=== PATIENT | male | born 1955 | race Caucasian/White ===

== ENCOUNTER 2016-11-01 16:24 | Observation (INO) | payer MEDICARE, BC ==
[~2016-11-01] VITALS: Ht 175.3 cm; Wt 100.7 kg
--- NOTE | ~2016-11-01 | HEMODYNAMI ---
PATIENT:JOCELYN BACON MEDICAL RECORD: [id number] : 59 [id number] ADMISSION DATE: 11/01/16 Generatedon:11/02/201615:32 Patient name: JOCELYN BACON Patient #: [id number] : 1955 Date of study: 11/02/2016 Page: Of Hemodynamic Procedure Report Patient Data Patient Demographics Procedure consent was obtained First Name: OJCELYN Gender: Male Last Name: JORDI : 1955 [facility] Initial: ANGELA Age: 61 year(s) Patient #: [id number] Race: SSN: [id number] Additional ID: [id number] Contact details Address: [address] [place] [address] State: [place] City: [place] Zip code: [address] Admission Admission Data Admission Date: 11/01/2016 Admission Time: 16:24 Arrival Date: 11/01/2016 Arrival Time: 16:24 Admit Source: Other Insurance Payor: Medicare Room #: D.2117 Weight (lbs.): 222.67 Weight (kg.): 101 Lab Results Lab Result Date: 11/02/2016 Lab Result Time: 0:00 Biochemistry Name Units Result Min Max BUN mg/dl 10 --(-*--)-- 7 18 Creatinine mg/dl 0.9 --(-*--)-- 0.6 1.3 CBC Name Units Result Min Max Hemoglobin g/dl 16.2 --(--*-)-- 13.5 17.5 Procedure Procedure Types Cath Procedure Diagnostic Procedure LHC LHC w/Coronaries w/Grafts PCI Procedure SVG-BMS/GABRIELLA Initial Procedure Description Procedure Date Procedure Date: 11/02/2016 Procedure Start Time: 14:45 Procedure End Time: 15:26 Procedure Staff Name Function Ismael Badillo MD Performing Physician Rosemarie Hyde RT Scrub Alicia Michaels RN Nurse Liberty Barger RT Monitor Jamar Thakur RT Shop Supervisor Indication Angina Procedure Data Cath Procedure Fluoroscopy Diagnostic fluoroscopy Total fluoroscopy Time: time: 13.8 min 13.8 min Diagnostic fluoroscopy Total fluoroscopy dose: dose: 1181.31 mGy 1181.31 mGy Contrast Material Contrast Material Type Amount (ml) Isovue 370 196 Entry Location Entry Primary Successful Side Size Upsize Upsize Entry Closure Succes sful Closure Location (Fr) 1 (Fr) 2 (Fr) Remarks Device Remarks Femoral Right 5 Fr 6 Fr Exoseal artery Short Estimated blood loss: 5 ml Diagnostic catheters Device Type Used For End Catheter Placement Cordis Infinity 5Fr JL 5 Left Coronary catheter Angiography Cordis Infinity 5Fr LCB Multi-vessel catheter Angiography Cordis Infinity 5Fr AR Multi-vessel MOD Catheter Angiography Procedure Complications No complications Procedure Medications Medication Administration Route Dosage Oxygen NC 2 l/min Heparin Flush Bag added to field 2 bags (1000units/500ml NS) Lidocaine 2% added to field 20 Versed I.V. 1 mg Fentanyl I.V. 50 mcg Versed I.V. 1 mg Fentanyl I.V. 50 mcg Versed I.V. 1 mg Fentanyl I.V. 50 mcg Heparin Bolus I.V. 5000 units Versed I.V. 1 mg Cardene I.C. 300 mcg Plavix P.O. 75 mg Hemodynamics Rest HGB: 16.2 (g/dl) Heart Rate: 70 (bpm) Pressure Samples Time Site Value (mmHg) Purpose Heart Use Rate(bpm) 15:00 AO 118/15(47) Snapshot 63 15:00 LV 122/11,18 Snapshot 64 15:01 AO 123/77(100) Pullback 67 15:01 LV 120/10,16 Pullback 67 Gradients Valve Time Site 1 Site 2 Mean SEP/DFP Peak To Heart Use (mmHg) (sec/min) Peak Rate (mmHg) (bpm) Aortic 15:01 LV AO 0 6 0 67 120/10,16 123/77(100) Calculations Valve P-P Mean Valve Index Valve Source Name Gradient Area Flow (cm2) Aortic 0 0 0 0 Snapshots Pre Cath Intra NCS Post Cath Vital Signs Time Heart Resp SPO2 NIBP (mmHg) Rhythm Pain Sedation Rate (ipm) (%) Status Level (bpm) 14:31:32 71 16 97 Measuring NSR 0 (11) 10(A) , No pain 14:32:07 67 16 96 144/96(125) NSR 0 (11) 10(A) , No pain 14:36:21 68 16 96 135/86(105) NSR 0 (11) 10(A) , No pain 14:40:29 69 16 96 113/89(107) NSR 0 (11) 10(A) , No pain 14:45:18 65 17 95 134/102(127) NSR 0 (11) 9(A) , No pain 14:49:32 61 16 96 116/88(106) NSR 0 (11) 9(A) , No pain 14:53:41 61 16 96 134/81(104) NSR 0 (11) 9(A) , No pain 14:57:51 63 17 96 120/82(109) NSR 0 (11) 9(A) , No pain 15:02:22 63 16 98 77/52(57) NSR 0 (11) 9(A) , No pain 15:05:59 64 16 95 117/74(92) NSR 0 (11) 9(A) , No pain 15:10:11 62 16 97 125/75(99) NSR 0 (11) 9(A) , No pain 15:14:27 63 17 98 122/78(105) NSR 0 (11) 9(A) , No pain 15:18:41 66 16 97 141/78(114) NSR 0 (11) 9(A) , No pain 15:23:40 61 16 97 Measuring NSR 0 (11) 9(A) , No pain 15:24:11 60 18 98 127/80(112) NSR 0 (11) 10(A) , No pain 15:26:54 63 18 98 130/86(109) NSR 0 (11) 10(A) , No pain Medications Time Medication Route Dose Verified Delivered Reason Notes Effectiveness by by 14:34:47 Oxygen NC 2 Ismael Alicia Per physician l/min St. Jamie Michaels RN, MD 14:34:53 Heparin Flush added 2 Ismael Ismael used for Bag to bags [facility] procedure (1000units/500ml field MD MARTINEZ NS) 14:34:59 Lidocaine 2% added 20ml Ismael Guevara used [facility] MARTINEZ 14:36:02 Versed I.V. 1 mg Ismael Alicia for sedation [facility]. Jamie Michaels RN, MD 14:36:08 Fentanyl I.V. 50 Isamel Alicia for sedation mcg [facility] Jamie Michaels RN, MD 14:38:16 Versed I.V. 1 mg Ismael Alicia for sedation [facility]. Jamie Michaels RN, MD 14:38:24 Fentanyl I.V. 50 Ismael Alicia for sedation mcg [facility] Jamie Michaels RN, MD 14:41:11 Versed I.V. 1 mg Ismael Alicia for sedation St. Jamie Michaels RN, MD 14:41:24 Fentanyl I.V. 50 Ismael Alicia for sedation mcg [facility] Jamie Michaels RN, MD 15:02:36 Heparin Bolus I.V. 5000 Ismael Alicia for dose units St. Jamie Michaels RN anticoagulation verified MD with dr brumfield 15:03:02 Versed I.V. 1 mg Ismael Alicia for sedation St. Jamie Michaels RN, MD 15:13:56 Cardene I.C. 300 Ismael Ismael for mcg CuberoJamie Patel MD, MD 15:26:18 Plavix P.O. 75 mg Ismael Alicia for St. Jamie Michaels RN antiplatelet MD therapy Procedure Log Time Note 14:00:34 Jamar Thakur RT(R) sent for patient. Start room use. 14:22:41 Informed consent obtained and on chart 14:23:00 Arrival Date: 11/01/2016 4:24:00 PM 14:23:16 Admit Source: Other 14:23:19 Insurance Payor : Medicare 14:25:26 Lab Result : Hemoglobin 16.2 g/dl 14:25:26 Lab Result : Creatinine 0.9 mg/dl 14:25:26 Lab Result : BUN 10 mg/dl 14:25:32 Diagnostic Cath Status : Elective 14:25:51 Indication : Angina 14:26:40 Time tracking: Regular hours 14:26:45 Plan of Care:Hemodynamics will remain stable., Cardiac rhythm will remain stable., Comfort level will be maintained., Respiratory function will remain adequate., Patient/ family verbilizes understanding of procedure., Procedure tolerated without complication., Recovers from procedure without complications.. 14:26:58 Patient received from [facility] to [facility] 2 Alert and oriented. Tansferred to table in Supine position. 14:26:59 Warm blankets applied, and marion hugger turned on for patient comfort. 14:27:00 Correct patient and procedure confirmed by team. 14:27:01 ECG and BP/O2 sat monitors applied to patient. 14:29:43 Vital chart was started 14:29:48 Rhythm: sinus rhythm 14:29:50 Full Disclosure recording started 14:30:10 H&P Date Dictated: 11/02/2016 Emergent; H&P N/A. 14:30:21 Pre-procedure instructions explained to patient. 14:30:22 Pre-op teaching completed and patient verbalized understanding. 14:30:24 Family in waiting room. 14:30:26 Patient NPO since Midnight. 14:30:29 Is the patient allergic to Iodine/contrast media? No. 14:31:05 Is patient on blood thinner?No 14:31:08 ACC The patient was administered the following blood thiners within the last 24 hours: None 14:31:12 Patient diabetic? No. 14:31:14 Previous problem with sedation/anesthesia? No ? 14:31:15 Snore? Yes 14:31:16 Sleep apnea? Yes 14:31:17 Deviated septum? No 14:31:18 Opens mouth fully? Yes 14:31:19 Sticks out tongue? Yes 14:31:21 Airway obstruction? No ? 14:31:25 Dentures? Yes IN 14:31:32 Pre procedure: right dorsailis pedis pulse 1+ Palpable, but thready & weak; easily obliterated 14:31:34 Patient pain scale 0/10 ?. 14:31:39 IV patent on arrival in right forearm with 0.9% NaCl at [facility]. 14:31:42 Lab results completed and on chart. 14:31:46 Right groin area was prepped with chlora-prep and draped in sterile fashion 14:31:47 Alarms reviewed by R. N. 14:31:47 Sharps counted by scrub and verified by R.N. 14:32:30 Use device set Femoral Dx 14:32:34 Tegaderm 4 x 4 opened to sterile field. 14:32:35 Acist Manifold opened to sterile field. 14:32:36 Acist Hand Control opened to sterile field. 14:32:38 Acist Syringe opened to sterile field. 14:32:38 Bag Decanter opened to sterile field. 14:32:39 Cardinal Cath Pack opened to sterile field. 14:32:39 Terumo 5Fr [place] Sheath opened to sterile field. 14:32:40 St Clark 260cm J .035 wire opened to sterile field. 14:32:41 Cordis Infinity 5Fr Multipack catheter opened to sterile field. 14:32:54 --------ALL STOP TIME OUT------ 14:32:54 Final Timeout: patient, procedure, and site verified with staff and physician. All members of the team are in agreement. 14:32:57 Right groin site verified by team. 14:33:00 Physical assessment completed. ASA score P 2 - A patient with mild systemic disease as per Ismael Badillo MD. 14:33:04 Sedation plan: IV Moderate Sedation Versed, Fentanyl 14:34:47 Oxygen 2 l/min NC was given by Alicia Michaels RN; Per physician; 14:34:53 Heparin Flush Bag (1000units/500ml NS) 2 bags added to field was given by Ismael Badillo MD; used for procedure; 14:34:59 Lidocaine 2% 20ml vial added to field was given by Ismael Badillo MD; used for procedure; 14:36:02 Versed 1 mg I.V. was given by Alicia Michaels RN; for sedation; 14:36:08 Fentanyl 50 mcg I.V. was given by Alicia Michaels RN; for sedation; 14:38:05 Baseline sample Acquired. 14:38:16 Versed 1 mg I.V. was given by Alicia Michaels RN; for sedation; 14:38:24 Fentanyl 50 mcg I.V. was given by Alicia Michaels RN; for sedation; 14:41:11 Versed 1 mg I.V. was given by Alicia Michaels RN; for sedation; 14:41:24 Fentanyl 50 mcg I.V. was given by Alicia Michaels RN; for sedation; 14:45:46 Zero performed for pressure channel P1 14:45:51 Procedure started. 14:45:56 Local anesthetic to right femoral artery with Lidocaine 2% by Ismael Badillo MD.INITIAL ACCESS ONLY 14:46:05 A 5 Fr sheath was inserted into the Right Femoral artery 14:46:39 5 Fr jl4 guide catheter was inserted over the wire 14:48:38 Catheter removed. 14:49:09 A Cordis Infinity 5Fr JL 5 catheter was advanced over the wire and used for Left Coronary Angiography. 14:49:41 LCA angiography performed. 14:49:48 Injector settings: Ml/sec: 3, Volume: 6, 14:50:39 Catheter removed. 14:50:47 5 Fr 3drc guide catheter was inserted over the wire 14:51:11 RCA angiography performed. 14:51:15 Injector settings: Ml/sec: 3, Volume: 6, 14:51:31 SVG to RCA angiography performed. 14:52:03 Catheter removed. 14:52:47 A Cordis Infinity 5Fr LCB catheter was advanced over the wire and used for Multi-vessel Angiography. 14:53:40 SVG angiography performed. 14:56:23 Catheter removed. 14:56:27 A Cordis Infinity 5Fr AR MOD Catheter was advanced over the wire and used for Multi-vessel Angiography. 14:58:59 SVG angiography performed. 14:59:12 Catheter removed. 14:59:51 Terumo 6Fr [place] Sheath opened to sterile field. 14:59:52 Firetide BasixCompak Inflation Kit opened to sterile field. 14:59:54 Cr Whisper J 300cm 0.014 guide wire opened to sterile field. 15:01:00 5 Fr pig guide catheter was inserted over the wire 15:01:13 LV hemodynamics recorded. 15:01:15 LV gram done using DOYLE 15:01:17 Injector settings: Ml/sec: 5, Volume: 15, 15:01:26 EF : 55 % 15:01:43 Catheter removed. 15:02:00 Isonastronic Launcher 6Fr JR 4.0 guide catheter opened to sterile field. 15:02:09 Sheath upsized to a 6 Fr Short. 15:02:15 6 Fr jr 4 guide catheter was inserted over the wire 15:02:28 whisper wire advanced. 15:02:36 Heparin Bolus 5000 units I.V. was given by Alicia Michaels RN; for anticoagulation; dose verified with dr brumfield 15:03:02 Versed 1 mg I.V. was given by Alicia Michaels RN; for sedation; 15:05:11 Wire advanced across lesion. 15:07:05 Inflation number: 1 A Colcord Sci [place] 3.0 X 15 balloon was prepped and advanced across the Aorta Left -> Mid LAD, then inflated to 6 DELANO for 0:30 (min:sec). 15:07:18 Inflation number: 2 The Colcord Sci [place] 3.0 X 15 balloon was reinflated across the Aorta Left -> Mid LAD, to 6 DELANO for 0:30 (min:sec). 15:07:44 Inflation number: 3 The Colcord Sci [place] 3.0 X 15 balloon was reinflated across the Aorta Left -> Mid LAD, to 8 DELANO for 0:10 (min:sec). 15:09:14 Inflation number: 4 The Colcord Sci [place] 3.0 X 15 balloon was reinflated across the Aorta Left -> Mid LAD, to 10 DELANO for 0:30 (min:sec). 15:10:23 Inflation number: 5 The Colcord Sci [place] 3.0 X 15 balloon was reinflated across the Aorta Left -> Mid LAD, to 8 DELANO for 0:10 (min:sec). 15:13:56 Cardene 300 mcg I.C. was given by Ismael Badillo MD; for vasodilation; 15:16:10 Balloon removed over the wire. 15:19:31 Inflation Number: 6 A Medtronic Integrity 3.0 X 18 stent was prepped and advanced across the Aorta Left -> Mid LAD. The stent was deployed at 14 DELANO for 0:30 (min:sec). 15:19:57 Stent catheter was removed intact over wire. 15:23:19 Inflation Number: 7 A Medtronic Integrity 3.5 X 15 stent was prepped and advanced across the Aorta Left -> Mid LAD. The stent was deployed at 12 DELANO for 0:30 (min:sec). 15:24:22 Stent catheter was removed intact over wire. 15:24:23 Wire removed. 15:24:23 Guide catheter removed. 15:24:49 Cordis 6Fr Exoseal opened to sterile field. 15:25:06 Sheath removed intact; hemostasis achieved with Exoseal to the Right Femoral artery. 15:25:08 Procedure ended.(Physican Out) 15:25:17 Fluoroscopy time 13.80 minutes. 15:25:31 Fluoroscopy dose: 1181.31 mGy 15:25:31 Flurop Dose total: 1181.31 15:25:35 Contrast amount:Isovue 370 196ml. 15:25:37 Sharps counted by scrub and verified by R.N. 15:25:39 Insertion/operative site no bleeding no hematoma. 15:25:42 Post-op/insertion site Right Femoral artery dressed using a 4 x 4 and Tegaderm. 15:25:44 Post right femoral artery:stable 15:25:46 Post Procedure Pulses reassessed and unchanged 15:25:49 Post procedure rhythm: unchanged. 15:25:52 Estimated blood loss: 5 ml 15:25:53 Post procedure instruction explained to patient.Patient verbalizes understanding. 15:25:54 Patient needs reinforcement of post procedure teaching. 15:26:08 Procedure type changed to Cath procedure, Diagnostic procedure, LHC, LHC w/Coronaries w/Grafts, PCI procedure, SVG-BMS/GABRIELLA Initial 15:26:09 Procedure and supply charges have been captured, reviewed, submitted and are correct. 15:26:13 Procedure Complication : No complications 15:26:17 Vital chart was stopped 15:26:17 See physician's report for complete and final results. 15:26:18 Plavix 75 mg P.O. was given by Alicia Michaels RN; for antiplatelet therapy; 15::24 Report given to [facility]. 15:26:26 Patient transfered to [facility] with Stretcher. 15:26:32 Procedure ended. 15:26:32 Full Disclosure recording stopped 15::44 ACC-PCI Only Patient was given prescriptions, or instructed by Ismael Badillo MD to start/continue the following medications upon discharge: Plavix 15::45 End room use (Document Last) 15:30:41 Patient Weight : 101 kg Intervention Summary Intervention Notes Time ActionType Lesion and Equipment Action# Pressure Duration Attributes Used 15:07:05 Inflate Aorta Left Colcord 1 6 00:30 balloon -> Mid LAD Sci [place] 3.0 X 15 balloon 15:07:18 Reinflate Aorta Left Colcord 2 6 00:30 balloon -> Mid LAD Sci [place] 3.0 X 15 balloon 15:07:44 Reinflate Aorta Left Colcord 3 8 00:10 balloon -> Mid LAD Sci [place] 3.0 X 15 balloon 15:09:14 Reinflate Aorta Left Colcord 4 10 00:30 balloon -> Mid LAD Sci [place] 3.0 X 15 balloon 15:10:23 Reinflate Aorta Left Colcord 5 8 00:10 balloon -> Mid LAD Sci [place] 3.0 X 15 balloon 15:19:31 Place stent Aorta Left Medtronic 6 14 00:30 -> Mid LAD Integrity 3.0 X 18 stent 15:23:19 Place stent Aorta Left Medtronic 7 12 00:30 -> Mid LAD Integrity 3.5 X 15 stent Device Usage Item Name Manufacture Quantity Catalog Number Hospital Part Current Mini mal Lot# / Charge Number Stock Stock Serial# Code Tegaderm 4 3M 1 [id number] [id number] 427372 5 x 4 Acist Acist 1 01806 190159 418521 579083 5 Stepcase [employer] Acist Hand Acist 1 51913 904793 257415 531516 5 Metabolomic [employer]ostics Systems [employer] Acist Acist 1 34727 875865 072046 206669 20 Syringe Medical Systems [employer] Bag Microtek 1 [facility] 925256 56074 162398 5 [employer] Cardinal Cardinal 1 [id number] 374664 75022 075305 5 Cath Pack Health Terumo 5Fr Terumo 1 [id number] 488361 169638 224771 [address] [address] [facility] 1 087404 014861 862287 083185 30 260cm J .035 wire Cordis Cardinal 1 [id number] 229467 65986 187204 30 [facility] 5Fr Multipack catheter Cordis Cardinal 1 [id number] 707185 927911 806413 5 [facility] 5Fr JL 5 catheter Cordis Cardinal 1 [id number] 499463 443769 791008 5 [facility]inity Health 5Fr LCB catheter Cordis Cardinal 1 [id number] 822885 707578 736234 15 [facility] Health 5Fr AR MOD Catheter Terumo 6Fr Terumo 1 [id number] 219883 004288 854884 40 [place] Sheath Merit Merit 1 [id number] 473831 516253 610005 15 BasLucky Pai Medical Inflation Kit Cr Cr 1 [id number] 640457 506588 685767 5 Whisper J Vascular 300cm 0.014 guide wire Medtronic Medtronic 1 [id number] 012269 18093 983464 1 Launcher 6Fr JR 4.0 guide catheter Colcord Sci Colcord 1 [id number] 023341 780119 393567 1 [id number] [place] Scientific 3.0 X 15 balloon Medtronic Medtronic 1 [id number] 396458 098374 253737 7 [id number] Integrity 3.0 X 18 stent Medtronic Medtronic 1 [id number] 621613 303770 642324 3 [id number] Integrity 3.5 X 15 stent Cordis 6Fr Cardinal 1 [id number] 238238 113408 979583 10 [facility] [employer] Signature Audit [place] Stage Time Signature Unsigned Intra-Procedure 11/02/2016 Liberty Barger 3:32:05 PM RT(R) Signatures Monitor : Liberty Barger RT Signature : Date : Time : [id number] [place] [address]
[2016-11-01 16:38] VITALS: BP 142/113; BMI 32.8
--- NOTE | 2016-11-01 16:43 | NUR ---
TRANSFERED BY EMS FROM [facility]. OREINTED TO ROOM. CALL LIGHT IN REACH. WILL CONT. PLAN OF CARE.
[2016-11-01] MEDS ORDERED: BYSTOLIC2.5 MG PO (16:56)
[2016-11-01] MEDS ORDERED: HYDROCODON-ACE1 EAC7 PO (16:56)
[2016-11-01] MEDS ORDERED: DYAZIDE 37.5/251 CAP PO (16:57)
[2016-11-01] MEDS ORDERED: BAYER CHEWABLE81 MG PO (16:57)
[2016-11-01] MEDS ORDERED: RESTORIL15 MG PO (16:58)
[2016-11-01] MEDS ORDERED: ZOCOR80 MG PO (16:58)
[2016-11-01] MEDS ORDERED: FISH OIL 1,0001 CA1 PO (16:59)
[2016-11-01 19:16] LABS: BASOPHILS 0.2 % (0.0-2.0); EOSINOPHILS 0.7 % (0-7); HEMATOCRIT 45.2 % (42.0-54.0); HEMOGLOBIN 16.2 g/dL (13.5-17.5); IMMATURE GRANULOCYTES 0.3 % (0-5); LYMPHOCYTES 26.1 % (15-50); MCH 31.5 pg (26.0-34.0); MCHC 35.8 g/dL (31.0-37.0); MCV 87.8 fL (80.0-100.0); MEAN PLATELET VOLUME 9.8 fL (7.4-10.4); MONOCYTES 6.7 % (2-11); PLATELET COUNT 138 10x3/uL (130-400); RBC 5.15 10x6/uL (4.20-6.10); RDW 13.6 % (11.5-14.5); WBC 10.2 10x3/uL (4.8-10.8)
[2016-11-01 19:49] LABS: CALC OSMOLALITY 277 mosm/kg (275-300); CALCIUM 9.2 mg/dL (8.5-10.1); CARBON DIOXIDE 27.4 mmol/L (21.0-32.0); CHLORIDE - SERUM 101 mmol/L (98-107); CREATININE - SERUM 0.9 mg/dL (0.6-1.3); GLUCOSE 122 mg/dL (74-106); POTASSIUM - SERUM 4.1 mmol/L (3.5-5.1); SODIUM 139 mmol/L (136-145); UREA NITROGEN 10 mg/dL (7-18); eGFR NON AFRICAN AMERICAN > 90 mL/min (90-120)
[2016-11-01 20:33] VITALS: BP 108/61
[2016-11-02 00:32] VITALS: BP 136/69
[2016-11-02 04:42] VITALS: BP 115/68
--- NOTE | 2016-11-02 06:12 | NUR ---
PT ASSESSMENT COMPLETED NO DISTRESS OBSERVED AT THIS TIME CALL LIGHT IN REACH SRX2 BED LOW AND LOCKED WILL MONITOR
[2016-11-02 08:00] VITALS: BP 99/56
--- NOTE | 2016-11-02 10:23 | NUR ---
TELEMETRY SB. RESP UL ON 02 2L DE. NPO FOR [facility]. AT BS. WILL CONT. PLAN OF CARE.
[2016-11-02 12:00] VITALS: BP 106/62
[2016-11-02 12:20] VITALS: Ht 175.3 cm; Wt 100.7 kg
--- NOTE | 2016-11-02 14:11 | NUR ---
PRE-OPS GIVEN. UNDERSTANDING VOICED. ESCORTED TO CAR BY W/C.
--- NOTE | 2016-11-02 14:13 | NUR ---
PRE-OPS GIVEN. TO CLINICAL SUPPORT TECH BY BED.
--- NOTE | 2016-11-02 15:45 | NUR ---
BACK FROM MOTHERCRAFT NURSE. VS WNL. RIGHT GROIN STABLE WITHOUT BLEEDING OR HEMATOMA NOTED. WILL MONITOR.
[2016-11-02 16:00] VITALS: BP 118/67
[2016-11-02] MEDS ORDERED: PLAVIX75 MG PO (16:24)
[2016-11-02] MEDS ORDERED: COZAAR25 MG PO (16:24)
--- NOTE | 2016-11-02 20:01 | NUR ---
DC'D IV WITH TIP INTACT, RIGHT GROIN DRESSING C/D/I. PEDAL PULSE PALPABLE. DISCHARGE PAPER WORK SIGNED AND POST OP INSTRUCTIONS GIVEN.
--- NOTE | 2016-11-03 14:44 | OP ---
PATIENT NAME: JOCELYN BACON MEDICAL RECORD: [id number] :59 LOCATION:D. D.2117 ADMISSION DATE:11/01/16 SURGEON: BORIS MANCERA MD DATE OF OPERATION: PROCEDURE: Left heart catheterization, selective coronary angiography, right femoral approach. CATHETERS: A 5-St Lucian sheath, 5/4 left and right Ramu, 5/4 pig. The procedure was tolerated. We proceeded to PTCA stenting of the saphenous vein graft to the circumflex after procedure was finished. FINDINGS: Left ventriculography in the 30-degree DOYLE view shows marked inferior hypokinesis. Overall, LV function reduced to 30% to 35%. CORONARY ANATOMY: LEFT MAIN: Left main fills for a short period of time and basically also seen filling the distal circumflex via left-left collaterals. LAD: Totally occluded. CIRCUMFLEX: Totally occluded. RIGHT CORONARY ARTERY: Totally occluded proximally. BYPASS GRAFTS: 1. Saphenous vein graft to the LAD is widely patent throughout its course. 2. Saphenous vein graft to the OM has what looks like spontaneous dissection at the area of previous stenting as well as thrombus versus dissection in the mid portion of this vessel, this vessel is a small runoff vessel. Right coronary has some degenerative change, but no flow obstructive disease. Saphenous vein graft to right has degenerative changes, but no flow obstructive disease. PLAN: Intervention of saphenous vein graft to the circumflex. DESCRIPTION: A 5-St Lucian sheath was exchanged for a 6-St Lucian sheath. A JR guiding catheter provided good catheter support followed by a 300 cm [place] XT wire placed across the tightly occluded 90% saphenous vein graft to the circumflex. We initially did balloon dilatation in the area of questionable thrombus; however, this showed no improvement despite the patient appeared to be on Plavix. Additionally, he was given 1.2 cc of IC Cardene. Stents were placed in the following fashion. A 3.0 x 18 mm Integrity nondrug-eluting stent was inflated up to 14 atmospheres in the midportion. This shows an excellent tacking of probable dissection in the mid portion of the saphenous vein graft. Next, proximally in the area of previous stenting with obvious dissection, 3.5 mm Integrity nondrug eluting stent was placed up to 14 atmospheres. Final injection shows excellent resolution of two separate dissections. This is a small runoff vessel. TAD flow was 3 at the end of the procedure. Heparin was used in the case. Sheath was closed with ExoSeal device. TRANSINT:[id number] Voice Confirmation ID: [id number] DOCUMENT ID: [id number] OPERATIVE REPORT [id number] JOCELYN BACON,BORIS Kraft MD at 1444 CC: [id number] DICTATION DATE: 11/02/16 1535 SALESPERSON HANDBAGS: 11/02/16 2248 DIS IN 11/02/[address] [address]
--- NOTE | 2016-11-03 14:44 | CN ---
PATIENT NAME:JOCELYN BACON MEDICAL RECORD: [id number] : 59 LOCATION:D. D.2117 ADMIT DATE: 11/01/16 ACCOUNT: [id number] CONSULTING PHYSICIAN: BORIS MANCERA MD REFERRING PHYSICIAN: BORIS MANCERA MD DATE OF CONSULTATION: 11/02/2016 Cardiology Consultation HISTORY OF PRESENT ILLNESS: This is a pleasant 61-year-old gentleman with known history of coronary artery disease, status post coronary bypass grafting subsequent interventions. He has been doing actually extremely well, until yesterday was actually full court basketball with his grandson and had angina, took 3 nitroglycerin, received partial relief, although not complete, and was transferred here for further evaluation. Received Lovenox, Plavix, and aspirin and had complete relief. Enzymes negative. We are asked to see him concerning his cardiovascular status. He was transferred for further evaluation. PAST MEDICAL HISTORY: 1. History of hypertension. 2. Hyperlipidemia. 3. Osteoarthritis. 4. Insomnia. ALLERGIES: LORAZEPAM. MEDICATIONS: Include: 1. Dyazide 1 p.o. daily. 2. Restoril 15 at bedtime p.r.n. 3. Aspirin 81 daily. 4. Simvastatin 80 daily 5. Bystolic 2.5 daily. SOCIAL HISTORY: , lives near [place]. He takes care of his ADLs. Nonsmoker. REVIEW OF SYSTEMS: The patient reports easy bruising but reports no swollen glands. The patient reports no fever, no night sweats, no significant weight gain, no significant weight loss. No significant exercise tolerance. The patient reports no dry eyes, no irritation, no vision change. Patient reports no difficulty hearing and no ear pain. Patient reports no frequent nose bleeds or nose and sinus problems. Patient reports on arm pain on exertion. No shortness of breath while lying down. No history of heart murmur. Patient reports no cough, no wheezing or coughing up blood. Patient reports no abdominal pain, no vomiting. Normal appetite. No diarrhea and not vomiting blood. No nausea and no constipation. Patient reports no incontinence. No difficulty urinating. No hematuria. No increased frequency. Patient reports no muscle aches. No weakness, no arthralgias, no back pain. No swelling of the extremities. Patient reports no abnormal mole, no jaundice, no rashes. Reports no loss of consciousness. No weakness and no numbness. No seizures, dizziness, or headaches. The patient reports no depression, no sleep disturbance, feeling safe in a relationship and no alcohol abuse. Patient reports on fatigue. Reports no runny nose or sinus pressure. No itching, no hives, and no frequent sneezing. CONSULT REPORT [id number] JOCELYN BACON PHYSICAL EXAMINATION: GENERAL: Pleasant gentleman in no acute distress. VITAL SIGNS: 115/68, pulse is 57 and regular. HEENT: Normocephalic and atraumatic. NECK: No JVD or bruit. HEART: Regular. LUNGS: Lee clear. ABDOMEN: Soft, nontender. EXTREMITIES: Pulse 2+. There is no edema. NEUROLOGIC: Grossly intact. DIAGNOSTIC DATA: ECG shows ST-T changes consistent with LVH or ischemia. IMPRESSION: Acute coronary syndrome. PLAN: For diagnostic angiography, intervention based on above. TRANSINT:[id number] Voice Confirmation ID: [id number] DOCUMENT ID: [id number] BORIS MANCERA MD at 1444 CC: [id number] DICTATION DATE: 11/02/16818 THEATER SET PRODUCTION DESIGNER: 11/02/16 1027 DIS IN 11/02/[address] [facility] [address] [facility] [place] [address]
== END 2016-11-02 20:03 | disposition home or self-care (01) ==
LOC: OBSVTIME 16:24 → D.M2 16:24
PROVIDERS: ADMIT Internal Medicine Interventional Cardiology
DX: I25.10 Atherosclerotic heart disease of native coronary artery without angina pectoris (principal); I10 Essential (primary) hypertension; E78.5 Hyperlipidemia, unspecified; M19.90 Unspecified osteoarthritis, unspecified site; G47.00 Insomnia, unspecified